=== PATIENT | male | born 1940 | race Caucasian/White ===

== ENCOUNTER 2016-08-23 07:50 | Emergency (ER) | payer BC ==
[~2016-08-23 07:50] MED LIST: ACET500CAP PO; ASA5GR PO; ASAB PO; BUSPAR15 M1 PO; C5 PO; COREG25 PO; FISH OIL300 MG PO; FISH-EPA1000 MG PO; KDUR20 PO; LIPITOR20 PO; LOZOLTAB PO; NORCO1 TA1 PO; NORV10 PO; PCET PO; T PO
== END 2016-08-23 07:52 | disposition home or self-care (01) ==
LOC: ER 07:50
PROC: 0H9BXZZ Drainage of Right Upper Arm Skin, External Approach (ICD-10-PCS; principal; 2016-08-23)
DX: L02.411 Cutaneous abscess of right axilla (principal); I10 Essential (primary) hypertension; Z86.73 Personal history of transient ischemic attack (TIA), and cerebral infarction without residual deficits; F32.9 Major depressive disorder, single episode, unspecified; Z87.01 Personal history of pneumonia (recurrent); Z79.899 Other long term (current) drug therapy; Z79.82 Long term (current) use of aspirin
CPT/HCPCS: 99283

== ENCOUNTER 2016-08-29 13:05 | Day surgery (SDC) | payer BC ==
--- NOTE | ~2016-08-29 | EGD ---
EGD REPORT [facility] [address] [address] NAME: KAREN GUZMAN : [birth year] STATUS : REG [facility]#: [id number] AGE: 75 ADM/REG DATE : 08/29/16 MR#: [id number] REPORT SERV DATE: 08/29/16 DICTATED BY: LINDA GUNDERSON DATE: 08/29/16 REPORT STATUS : Draft [facility]ANS[facility]IB[facility] BY: [facility] DATE: 08/29/16 [facility] Patient Name: Karen Guzman Date of : 1940 Attending MD: CHENCHO GUNDERSON MD Procedure Date No Time: 08/29/2016 Procedure: Colonoscopy Indications: Hematochezia, Constipation Referring MD: ARDEN LEYVA MD Medicines: See the Anesthesia note for documentation of the administered medications Complications: No immediate complications. Estimated blood loss: Minimal. Procedure: Pre-Anesthesia Assessment: - ASA Grade Assessment: III - A patient with severe systemic disease. - Prior to the procedure, a History and Physical was performed, and patient medications and allergies were reviewed. The patient's tolerance of previous anesthesia was also reviewed. The risks and benefits of the procedure and the sedation options and risks were discussed with the patient. All questions were answered, and informed consent was obtained. Prior Anticoagulants: The patient has taken no previous anticoagulant or antiplatelet agents. After reviewing the risks and benefits, the patient was deemed in satisfactory condition to undergo the procedure. After I obtained informed consent, the scope was passed under direct vision. Throughout the procedure, the patient's blood pressure, pulse, and oxygen saturations were monitored continuously. The PCF [id number] was introduced through the anus and advanced to the terminal ileum. The ileocecal valve, appendiceal orifice, terminal ileum and rectum were photographed. The entire colon was examined. The colonoscopy was performed without difficulty. The patient tolerated the procedure well. The quality of the bowel preparation was adequate. Findings: The perianal and digital rectal examinations were normal. The terminal ileum appeared normal. Four sessile polyps were found in the sigmoid colon. The polyps were small in size. These polyps were removed with a cold snare. Resection and retrieval were complete. Six sessile polyps were found in the proximal ascending colon. The EGD REPORT [address] [address] NAME: KAREN GUZMAN : [birth year] STATUS : REG [facility]#: [id number] AGE: 75 ADM/REG DATE : 08/29/16 MR#: [id number] REPORT SERV DATE: 08/29/16 DICTATED BY: LINDA GUNDERSON DATE: 08/29/16 REPORT STATUS : Draft [facility]ANSCRIBED BY: [facility] DATE: 08/29/16 polyps were 3 to 8 mm in size. These polyps were removed with a cold snare. Resection and retrieval were complete. A sessile polyp was found at the hepatic flexure. The polyp was small in size. The polyp was removed with a cold snare. Resection and retrieval were complete. Three sessile polyps were found in the proximal transverse colon. The polyps were small in size. These polyps were removed with a cold snare. Resection and retrieval were complete. A sessile polyp was found in the mid transverse colon. The polyp was 7 mm in size. The polyp was removed with a cold snare. Resection and retrieval were complete. Non-bleeding internal hemorrhoids were found during retroflexion and were Grade II (internal hemorrhoids that prolapse but reduce spontaneously). Impression: - The examined portion of the ileum was normal. - Four small polyps in the sigmoid colon. Resected and retrieved. - Six 3 to 8 mm polyps in the proximal ascending colon. Resected and retrieved. - One small polyp at the hepatic flexure. Resected and retrieved. - Three small polyps in the proximal transverse colon. Resected and retrieved. - One 7 mm polyp in the mid transverse colon. Resected and retrieved. - Non-bleeding internal hemorrhoids. Recommendation: - Patient has a contact number available for emergencies. The signs and symptoms of potential delayed complications were discussed with the patient. Return to normal activities tomorrow. Written discharge instructions were provided to the patient. - Regular diet. - Discharge patient to home. - Continue present medications. - Await pathology results. - Repeat colonoscopy in 2 years for surveillance. Procedure Code(s): --- Professional --- 21533, Colonoscopy, flexible, proximal to splenic flexure; with removal of tumor(s), polyp(s), or other lesion(s) by snare technique Diagnosis Code(s): --- Professional --- K64.1, Second degree hemorrhoids D12.3, Benign neoplasm of transverse colon EGD REPORT [address] [address] NAME: KAREN GUZMAN : [birth year] STATUS : REG [facility]#: [id number] AGE: 75 ADM/REG DATE : 08/29/16 MR#: [id number] REPORT SERV DATE: 08/29/16 DICTATED BY: LINDA GUNDERSON DATE: 08/29/16 REPORT STATUS : Draft TRANSCRIBED BY: [employer] [facility] DATE: 08/29/16 D12.2, Benign neoplasm of ascending colon D12.5, Benign neoplasm of sigmoid colon K92.1, Melena K59.00, Constipation, unspecified CPT copyright 2013 [employer]. All rights reserved. The codes documented in this report are preliminary and upon solution consultant review may be revised to meet current compliance requirements. CHENCHO GUNDERSON MD 08/29/2016 3:52 PM This report has been signed electronically. Number of Addenda: 0 Note Initiated On: 08/29/2016 2:54 PM Scope Withdrawal Time 0 hours 28 minutes 8 seconds [id number] [place] [id number]
== END 2016-08-29 23:59 | disposition home or self-care (01) ==
LOC: DMU 13:05
PROVIDERS: Internal Medicine Gastroenterology
PROC: 0DBL8ZX Excision of Transverse Colon, Via Natural or Artificial Opening Endoscopic, Diagnostic (ICD-10-PCS; 2016-08-29)
PROC: 0DBK8ZX Excision of Ascending Colon, Via Natural or Artificial Opening Endoscopic, Diagnostic (ICD-10-PCS; 2016-08-29)
PROC: 0DBN8ZX Excision of Sigmoid Colon, Via Natural or Artificial Opening Endoscopic, Diagnostic (ICD-10-PCS; principal; 2016-08-29 15:00)
DX: D12.3 Benign neoplasm of transverse colon (principal); D12.2 Benign neoplasm of ascending colon; K63.5 Polyp of colon; K64.1 Second degree hemorrhoids; I10 Essential (primary) hypertension; G47.33 Obstructive sleep apnea (adult) (pediatric); I34.0 Nonrheumatic mitral (valve) insufficiency; Z86.73 Personal history of transient ischemic attack (TIA), and cerebral infarction without residual deficits; Z98.890 Other specified postprocedural states
CPT/HCPCS: 88305